=== PATIENT | male | born 1940 | race Caucasian/White ===

== ENCOUNTER 2018-03-27 14:10 | Emergency (ER) | payer MEDICARE, OTHER ==
--- NOTE | 2018-03-27 14:36 | Emergency Department Record ---
History of Present Illness - General Chief complaint: Pain Stated complaint: FALL RT SHOULDER PAIN Time Seen by Provider: 03/27/18 14:20 Source: Patient Mode of Arrival: Ambulatory Limitations: No limitations - History of Present Illness Initial comments: The patient is here due to a trip and fall about 3 hours ago. He landed on his R face, shoulder and neck and now has pain pretty much everywhere from the ribs up to the head on the R side. There was no LOC but the patient does have a bad JEWELL now and mild neck pain. He denies any L sided pain or any SOB. The patient did take a [place] just prior to presenting to the ER. MD Complaint: Other Onset/Timin -: Hour(s) Location: Right, Shoulder, Other Severity scale (1-10): 10 Quality: Sharp Consistency: Constant Improves with: Nothing Worsens with: Exertion, Weight bearing Associated Symptoms: Denies other symptoms - Related Data Allergies Allergy/AdvReac Type Severity Reaction Status Date / Time No Known Allergies Allergy no Unverified 10/31/16 11:19 allergies Travel Screening - Travel/Exposure Within Last 30 Days Have you traveled within the last 30 days?: No Review of Systems Constitutional: Denies: Chills, Fever Eyes: Denies: Eye discharge ENT: Denies: Congestion Respiratory: Denies: Cough Cardiovascular: Denies: Arrhythmia, Dyspnea on exertion Endocrine: Denies: Fatigue Gastrointestinal: Denies: Abdominal pain Genitourinary: Denies: Dysuria Musculoskeletal: Denies: Arthralgia, Back pain Past Medical History - SOCIAL HISTORY Smoking Status: Never smoker Alcohol Use: None Drug Use: None - RESPIRATORY Hx Respiratory Disorders: No - CARDIOVASCULAR Hx Cardio Disorders: Yes Hx Hypertension: Yes - NEURO Hx Neuro Disorders: Yes Hx CVA: Yes (2010) - GI Hx GI Disorders: Yes Hx Reflux: Yes - Hx Genitourinary Disorders: No - ENDOCRINE Hx Endocrine Disorders: No - MUSCULOSKELETAL Hx Musculoskeletal Disorders: No - PSYCH Hx Psych Problems: No - HEMATOLOGY/ONCOLOGY Hx Hematology/Oncology Disorders: No Family Medical History Any Significant Family History?: Yes Family Hx Comment (NOT TO BE USED IN PLACE OF ITEMS BELOW): sister- alzhiemer's Hx Resp Disorders: Brother/Sister Physical Exam - General General Appearance: Alert, Oriented x3, Cooperative, No acute distress - Head Head exam: Atraumatic, Normocephalic, Normal inspection - Eye Eye exam: Normal appearance, PERRL, EOMI - ENT Throat exam: Normal inspection. negative: Tonsillar erythema, Tonsillar exudate - Neck Neck exam: Normal inspection, Full ROM, Tenderness (There is mild Cspine tenderness posteriorly.). negative: Lymphadenopathy, Meningismus - Respiratory Respiratory exam: Normal lung sounds bilaterally, Chest wall tenderness (There is R upper lateral rib tenderness.). negative: Respiratory distress - Cardiovascular Cardiovascular Exam: Regular rate, Normal rhythm, Normal heart sounds - GI/Abdominal GI/Abdominal exam: Soft, Normal bowel sounds. negative: Tenderness - Extremities Extremities exam: Normal inspection, Full ROM, Normal capillary refill. negative: Tenderness - Back Back exam: Reports: Normal inspection. Denies: Vertebral tenderness - Neurological Neurological exam: Alert, Normal gait, Oriented X3. negative: Abnormal gait, Altered, Motor sensory deficit Course Vital Signs 03/27/18 14:15 Temperature 98.1 F Pulse Rate 68 Respiratory 20 Rate Blood Pressure 139/91 Pulse Ox 98 - Reevaluation(s) Reevaluation #1: The patient is doing very well at this time. He is up walking with no difficulty and with much less pain. I did discuss the xray results with him and the need for F/U. 03/27/18 15:48 Medical Decision Making - Data Complexity MDM Data: X-Ray Ordered and/or Reviewed - Radiology Data Radiology results: Report reviewed (R shoulder: Neg Head and Cervical CT: Neg for any acute changes. Ches CT: Ribs Neg. Poss. manubrium fx superiorly but patient not tender there.) Disposition Disposition: Discharge Clinical Impression: Contusion of rib on right side Qualifiers: Encounter type: initial encounter Qualified Code(s): S20.211A - Contusion of right front wall of thorax, initial encounter Disposition: Home, Self-Care Condition: (2) Stable Instructions: Rib Contusion (ED) Additional Instructions: Please take the 2 [place] as directed then Tylenol. Please see your family doctor for recheck in 2 days. Return to the ER for any worsening symptoms. Forms: Patient Portal Access Time of Disposition: 15:47 Quality - Quality Measures Quality Measures: N/A - Blood Pressure Screening View Details: Yes Does Patient Have Any of the Following: Active Dx of HTN Blood Pressure Classification: Hypertensive Reading Systolic Measurement: 139 Diastolic Measurement: 91 Screening for High Blood Pressure: Patient Exclusion, Hx of HTN [[id number]]
[2018-03-27] MEDS ORDERED: HYDROCODONE/APAP 5/325MG TABLET PO ONE (15:45)
--- NOTE | 2018-03-29 07:31 | RADIOLOGY REPORT ---
EXAM: RIGHT SHOULDER HISTORY: PATIENT FELL TODAY WITH RIGHT SHOULDER PAIN. TECHNIQUE: Three views of the right shoulder were obtained. Comparison: No prior right shoulder series. Encounter: Initial. FINDINGS: Mild degenerative arthritis at the glenohumeral joint. Diffuse osteopenia consistent with osteoporosis. Minor spurring at the acromioclavicular joint as well. No definite fracture or dislocation of the right shoulder identified. IMPRESSION: 1. OSTEOPOROSIS. 2. MILD SPURRING AT THE GLENOHUMERAL JOINT AND ACROMIOCLAVICULAR JOINT. 3. NO DEFINITE FRACTURE OF THE RIGHT SHOULDER IDENTIFIED. JOB NUMBER: [id number] [facility]
--- NOTE | 2018-03-29 07:43 | CT SCAN REPORT ---
EXAM: EMERGENCY HEAD CT HISTORY: PATIENT FELL TODAY WITH TRAUMA. TECHNIQUE: Axial CT scan of the head was performed without IV contrast. Comparison: Head CT 03/27/16. Encounter: Initial. FINDINGS: No definite acute intracranial hemorrhage identified. No focal mass effect or midline shift apparent. 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 Opacification of the right ethmoid air cell posteriorly. No depressed calvarial fracture is evident. IMPRESSION: 1. NO DEFINITE ACUTE INTRACRANIAL HEMORRHAGE OR FOCAL MASS EFFECT IDENTIFIED. 2. GENERALIZED ATROPHY WITH CHRONIC APPEARING DEEP WHITE MATTER CHANGES AND AN OLD AREA OF INFARCTION IN THE LEFT FRONTAL PARIETAL LOBE BEFORE. [facility]: [id number] [facility]
--- NOTE | 2018-03-29 07:55 | CT SCAN REPORT ---
EXAM: EMERGENCY CT SCAN OF THE CERVICAL SPINE HISTORY: PATIENT FELL TODAY WITH NECK PAIN. TECHNIQUE: Axial CT scan of the entire cervical spine was performed without IV contrast. Comparison: No prior cervical study with which to compare. Encounter: Initial. FINDINGS: No apical pneumothorax is evident. No definite fracture of the cervical spine identified. No prevertebral soft tissue swelling is seen. There is narrowing in particular of the fifth and sixth cervical interspaces with associated hypertrophic spurring. Prominent degenerative change at the odontoid-anterior arch of C1 articulation seen as well. Multilevel facet joint arthropathy probably with fusion of the left C2-C3 facet articulation. There is slight anterior subluxation of the body of C3 on C4 and of C4 on C5 which appears to be on a degenerative basis related to the facet joint arthropathy at these levels. IMPRESSION: 1. NO DEFINITE FRACTURE OR PREVERTEBRAL SOFT TISSUE SWELLING SEEN IN THE CERVICAL SPINE. 2. SOME LOSS OF LORDOSIS LIKELY DUE TO POSITIONING OR SPASM. 3. MULTILEVEL DEGENERATIVE CHANGE IN THE CERVICAL SPINE DETAILED ABOVE. JOB NUMBER: [id number] [facility]
--- NOTE | 2018-03-29 08:01 | CT SCAN REPORT ---
EXAM: EMERGENCY CT SCAN OF THE CHEST HISTORY: PATIENT FELL WITH PAIN RIGHT SIDE OF CHEST. TECHNIQUE: Axial CT scan of the chest was performed without IV contrast. Comparison: No prior chest CT. Comparison is made with a two view chest x-ray dated 10/31/16. Encounter: Initial. FINDINGS: No pneumothorax is identified. Some minor streaky atelectasis in the right base. Some coronary artery calcification is present. The heart size is normal. No pleural or pericardial effusion evident. Some elevation of the right hemidiaphragm. focal scarring upper pole of the right kidney posteriorly with a tiny parenchymal calcification in this region. Some spurring in the thoracic spine. On the bony windows there is questionably a small fracture of the posterior aspect of the upper manubrium of the sternum. Correlation with point tenderness in this region suggested. IMPRESSION: 1. ELEVATION OF THE RIGHT HEMIDIAPHRAGM WITH SOME MILD STREAKY ATELECTASIS IN THE RIGHT BASE. 2. NO PNEUMOTHORAX OR PLEURAL EFFUSION EVIDENT. 3. QUESTIONABLE SMALL FRACTURE ALONG THE POSTERIOR ASPECT OF THE SUPERIOR MARGIN OF THE MANUBRIUM OF THE STERNUM AND CORRELATION WITH TENDERNESS IN THIS REGION IS SUGGESTED. 4. SOME CORONARY ARTERY CALCIFICATION. 5. FOCAL SCARRING UPPER POLE RIGHT KIDNEY. JOB NUMBER: [id number] [facility]
== END 2018-03-27 15:50 | disposition home or self-care (01) ==
LOC: ER 14:10
DX: S20.211A Contusion of right front wall of thorax, initial encounter (principal); M25.511 Pain in right shoulder; R51 Headache; M54.2 Cervicalgia; W01.10XA Fall on same level from slipping, tripping and stumbling with subsequent striking against unspecified object, initial encounter; I10 Essential (primary) hypertension; Z86.73 Personal history of transient ischemic attack (TIA), and cerebral infarction without residual deficits
CPT/HCPCS: 70450; 71250; 72125; 99283; 99284